=== PATIENT | male | born 1970 | race Two or more races ===

== ENCOUNTER 2016-09-30 10:59 | Emergency (ER) | payer SELFPAY ==
--- NOTE | 2016-09-30 12:07 | CT ---
HEAD W/O CON History: Headache for 5 days without trauma. Comparison: None. Procedure: 1 mm axial images were obtained through the head from the vertex to the base of the skull without intravenous contrast. Stacked reconstructed 5 mm images were then obtained in the axial, coronal and sagittal planes. Findings: The lateral ventricles are of normal size and shape without evidence of hydrocephalus. No evidence of midline shift is seen. No mass or mass-effect is observed. No evidence of intra- or extra-axial fluid collections or hemorrhage is identified. The murphy/white differentiation is within expected. The basilar cisterns remain uneffaced. The posterior fossa structures are unremarkable. No acute osseous abnormalities are identified. Mild mucosal thickening suggested within a few of the ethmoidal air cells. Impression: 1. Mild ethmoid sinus disease. 2. An otherwise negative unenhanced CT scan of the head.
== END 2016-09-30 13:42 | disposition home or self-care (01) ==
LOC: ED 10:59
DX: J01.20 Acute ethmoidal sinusitis, unspecified (principal); R42 Dizziness and giddiness